=== PATIENT | female | born 1965 | race Caucasian/White ===

== ENCOUNTER 2021-07-01 12:38 | Emergency (ER) | payer SELFPAY ==
[~2021-07-01] VITALS: Ht 160 cm; Wt 68.6 kg
[2021-07-01 12:55] VITALS: BP 158/79
== END 2021-07-01 16:41 | disposition home or self-care (01) ==
LOC: EMS 12:38
DX: S01.511A Laceration without foreign body of lip, initial encounter (principal); S53.402A Unspecified sprain of left elbow, initial encounter; I10 Essential (primary) hypertension; Z98.890 Other specified postprocedural states; W01.0XXA Fall on same level from slipping, tripping and stumbling without subsequent striking against object, initial encounter; Y93.01 Activity, walking, marching and hiking; Y92.89 Other specified places as the place of occurrence of the external cause; Y99.8 Other external cause status
CPT/HCPCS: 99283